=== PATIENT | female | born 1985 | race Caucasian/White ===

== ENCOUNTER 2018-03-07 12:32 | Emergency (ER) | payer MEDICAID, OTHER ==
[~2018-03-07] VITALS: Wt 60.0 kg
[~2018-03-07 12:32] MED LIST: FERR27TA PO; PREN1TAB49 PO; SENN1TAB5 PO
[2018-03-07 12:36] VITALS: BP 145/86; PULSE 84; RESP 18
[2018-03-07] MEDS ORDERED: GABA-526 PO (14:20)
[2018-03-07] MEDS ORDERED: DULO60CA6 PO (14:20)
--- NOTE | 2018-03-07 14:34 | ERD ---
ER Documentation Chief Complaint Chief Complaint medication refill HPI 33-year-old female patient with a past medical history of PTSD presents to the ED for a medication refill, states that she is currently taking Cymbalta and gabapentin for PTSD as she has weaned off of benzos. Reports that her psychiatrist has prescribed this to her however does not remember her psychiatrist name. Denies any fever, chills, nausea, vomiting, diarrhea, neck stiffness. Denies any suicidal or homicidal ideations. Denies any chest pain, shortness of breath. ROS All systems reviewed and are negative except as per history of present illness. Medications Home Meds Active Scripts Duloxetine Hcl* (Cymbalta*) 60 Mg Capsule.dr, 60 MG PO DAILY, #30 CAP Prov:CHIQUITA ESQUIVEL PA-C 03/07/18 Gabapentin* (Gabapentin*) 600 Mg Tablet, 1200 MG PO TID, #120 TAB Prov:CHIQUITA ESQUIVEL PA-C 03/07/18 Reported Medications Sennosides/Docusate Sodium (Stool Softener-Laxative Tab) 1 Tab Tablet, 2 TAB PO DAILY 02/20/11 Ferrous Sulfate (Iron) 1 Tab Tablet, 3 TAB PO DAILY 02/20/11 Vits W-Ca,Fe,Fa(<1MG) () 1 Tab Tablet, 1 TAB PO 02/20/11 Allergies Allergies: Coded Allergies: No Known Drug Allergies (Verified Allergy, 02/20/11) PMhx/Soc Medical and Surgical Hx: pt denies Surgical Hx Hx Neurological Disorder: No Hx Respiratory Disorders: No Hx Cardiac Disorders: No Hx Psychiatric Problems: Yes (anxiety) Hx Miscellaneous Medical Probl: No Hx Alcohol Use: No Hx Substance Use: No FmHx Family History: No diabetes, No coronary disease Physical Exam Vitals Vital Signs Date Temp Pulse Resp B/P (MAP) Pulse Ox O2 O2 Flow FiO2 Time Delivery Rate 03/07/18 98.1 84 18 145/86 99 12:36 (105) Physical Exam Const: [id number], well-nourished. In no acute distress. Head: Atraumatic, normocephalic Eyes: Normal Conjunctiva without injection. No purulent discharge. PERRL. EOMI ENT: Normal external ear. Ear canal without erythema. Tympanic membrane pearly palacios without effusion or bulging. Nasal canal clear with normal turbinates. Mo ist oropharynx without tonsillar exudates. Non-erythematous pharynx. Uvula midline. No drooling. No trismus. Neck: Full range of motion. No meningismus. No cervical lymphadenopathy. Resp: Clear to auscultation bilaterally. No wheezing, rhonchi, rales, or crackles. No accessory muscle use. No retractions. Cardio: Regular rate and rhythm. No murmurs, rubs or gallops. Abd: Soft, non tender, non distended. Normal bowel sounds. No palpable masses. No rebound tenderness. No guarding. Skin: No petechiae or rashes Back: No midline tenderness. No CVA tenderness. Ext: No cyanosis, or edema. Neur: Awake and alert. Psych: Normal Mood and Affect Procedures/MDM This is a 33-year-old female patient with a past medical history of PTSD presen ts to ED of wanting a medication refill for Cymbalta and gabapentin. Patient is afebrile and nontoxic-appearing. This was discussed with my supervising physician, Dr. Abad. Patient has requested for 1600 mg 3 times a day however the maximum dosage noted on epocrates that can be given to the patient is 3600 mg/day therefore a prescription written for patient for 1200 mg 3 times daily is reasonable. Low suspicion for acute myocardial infarction, pneumothorax, pericarditis, myocarditis, endocarditis, pneumonia, cardiac tamponade, pulmonary embolism, pleural effusion, AAA, aortic dissection, Boerhaave's syndrome, cardiac dysrhythmias,meningitis, intracranial bleed, seizure, stroke, TIA or other emergent conditions. Diagnosis: Encounter for medication refill Discharge medications: Cymbalta, gabapentin Follow up with primary care physician in 1-2 days. Instructed patient to return to the ED sooner for any worsening symptoms. Patient's questions were answered. Patient is hemodynamically stable. Patient understood and agreed with discharge plan. Patient discharged stable. Disclaimer: Inadvertent spelling and grammatical errors are likely due to EHR/dictation software use and do not reflect on the overall quality of patient care. Also, please note that the electronic time recorded on this note does not necessarily reflect the actual time of the patient encounter. Departure Diagnosis: Primary Impression: Encounter for medication refill Condition: Stable Patient Instructions: Taking Medicine Safely Referrals: [facility] YOU HAVE RECEIVED A MEDICAL SCREENING EXAM AND THE RESULTS INDICATE THAT YOU DO NOT HAVE A CONDITION THAT REQUIRES URGENT TREATMENT IN THE EMERGENCY DEPARTMENT. FURTHER EVALUATION AND TREATMENT OF YOUR CONDITION CAN WAIT UNTIL YOU ARE SEEN I N YOUR DOCTORS OFFICE WITHIN THE NEXT 1-2 DAYS. IT IS YOUR RESPONSIBILITY TO MAKE AN APPOINTMENT FOR FOLOW-UP CARE. IF YOU HAVE A PRIMARY DOCTOR --you should call your primary doctor and schedule an appointment IF YOU DO NOT HAVE A PRIMARY DOCTOR YOU CAN CALL OUR PHYSICIAN REFERRAL HOTLINE AT IF YOU CAN NOT AFFORD TO SEE A PHYSICIAN YOU CAN CHOSE FROM THE FOLLOWING [facility] [address] [facility]. [facility] [address] [facility]. [facility] [address] [facility] [address] [facility] [address] [facility]. [facility] [address] [facility]. [facility] YOU HAVE RECEIVED A MEDICAL SCREENING EXAM AND THE RESULTS INDICATE THAT YOU DO NOT HAVE A CONDITION THAT REQUIRES URGENT TREATMENT IN THE EMERGENCY DEPARTMENT. FURTHER EVALUATION AND TREATMENT OF YOUR CONDITION CAN WAIT UNTIL YOU ARE SEEN IN YOUR DOCTORS OFFICE WITHIN THE NEXT 1-2 DAYS. IT IS YOUR RESPONSIBILITY TO MAKE AN APPOINTMENT FOR FOLOW-UP CARE. IF YOU HAVE A PRIMARY DOCTOR --you should call your primary doctor and schedule and appointment IF YOU DO NOT HAVE A PRIMARY DOCTOR YOU CAN CALL OUR PHYSICIAN REFERRAL HOTLINE AT . IF YOU CAN NOT AFFORD TO SEE A PHYSICIAN YOU CAN CHOSE FROM THE FOLLOWING [facility] INSTITUTIONS: [facility] [address] [place] [address] [facility] [address] [place] [address] [facility] + [facility], [facility] [address] [place] [address] [facility] URGENT CARE/SPECIALTIES Additional Instructions: Call your primary care doctor TOMORROW for an appointment during the next 2-3 days.See the doctor sooner or return here if your condition worsens before your appointment time. CHIQUITA ESQUIVEL PA-C Mar 07, 2018 14:33
== END 2018-03-07 14:28 | disposition home or self-care (01) ==
LOC: FTE 12:32
DX: Z76.0 Encounter for issue of repeat prescription (principal)
CPT/HCPCS: 99281

== ENCOUNTER 2018-06-13 11:09 | Emergency (ER) | payer MEDICAID, OTHER ==
[~2018-06-13] VITALS: Ht 165.1 cm; Wt 65.0 kg
[~2018-06-13 11:09] MED LIST changes: +DULO60CA6 PO; +GABA-526 PO
[2018-06-13 11:12] VITALS: BP 129/85; PULSE 95; RESP 18; Ht 165.1 cm; Wt 65.0 kg
[2018-06-13] MEDS ORDERED: GABA-526 PO (12:34)
[2018-06-13] MEDS ORDERED: DULO60CA6 PO (12:36)
--- NOTE | 2018-06-13 12:59 | ERD ---
ER Documentation Chief Complaint Chief Complaint RIGHT TOE PAIN HPI Patient is a 33-year-old female with past medical history of PTSD who presents the ER for concerns of refill of her gabapentin and Cymbalta. Patient takes gabapentin 1200 mg 3 times daily. Patient states she does not primary care physician at the time and she is unable to get a refill. Patient also presents with swelling and bruising to her right foot. Patient states she is not sure how she injured it as it was "a hectic scene". Patient states that the pain occurred started approximately 2-3 days ago. Patient denies any previous fractures or dislocations. Patient denies any fevers or chills. Patient denies any suicidal ideations or homicidal ideations. ROS All systems reviewed and are negative except as per history of present illness. Medications Home Meds Active Scripts Duloxetine Hcl* (Cymbalta*) 60 Mg Capsule.dr, 60 MG PO DAILY, #30 CAP Prov:TORSTEN TOTH PA-C 06/13/18 Gabapentin* (Gabapentin*) 600 Mg Tablet, 1200 MG PO TID, #120 TAB Prov:TORSTEN TOTH PA-C 06/13/18 Reported Medications Sennosides/Docusate Sodium (Stool Softener-Laxative Tab) 1 Tab Tablet, 2 TAB PO DAILY 02/20/11 Ferrous Sulfate (Iron) 1 Tab Tablet, 3 TAB PO DAILY 02/20/11 Vits W-Ca,Fe,Fa(<1MG) () 1 Tab Tablet, 1 TAB PO 02/20/11 Allergies Allergies: Coded Allergies: No Known Drug Allergies (Verified Allergy, 02/20/11) PMhx/Soc Hx Neurological Disorder: No Hx Respiratory Disorders: No Hx Cardiac Disorders: No Hx Psychiatric Problems: Yes (anxiety) Hx Miscellaneous Medical Probl: No Hx Alcohol Use: No Hx Substance Use: No Smoking Status: Never smoker FmHx Family History: No diabetes Physical Exam Vitals Vital Signs Date Temp Pulse Resp B/P (MAP) Pulse Ox O2 O2 Flow FiO2 Time Delivery Rate 06/13/18 98.1 95 18 129/85 99 11:12 (100) Physical Exam GENERAL: Well-developed, well-nourished female. Appears in no acute distress. HEAD: Normocephalic, atraumatic. EYES: Pupils are equally reactive bilaterally. EOMs grossly intact. No conjunctival erythema. ENT: Moist mucous membranes. No uvula deviation. No kissing tonsils. NECK: Supple. No meningismus. Normal range of motion of the neck. LUNG: Clear to auscultation bilaterally. No rhonchi, wheezing, rales or coarse breath sounds. HEART: Regular rate and rhythm. No murmurs, rubs or gallops. EXTREMITIES: Equal pulses bilaterally. No peripheral clubbing, cyanosis or edema. No unilateral leg swelling. NEUROLOGIC: Alert and oriented. Moving all four extremities without any difficulty. Normal speech. Steady gait. SKIN: Normal color. Warm and dry. No rashes or lesions. RLE: No deformity. Swelling and ecchymosis noted around the fourth digit. Skin intact. Full ROM. No crepitus. Normal range of motion of the ankle. Nontender palpation of the midfoot, fifth metatarsal, lateral medial ankle. Sensation intact to light touch. Neurovascularly intact. (Able to plantarflex, dorsiflex, mio foot, invert foot, raise big toe.) 2+ DP and DT pulses. Procedures/MDM x ED COURSE: The patient was stable throughout ED course. I kept the patient and/or family informed of laboratory and diagnostic imaging results throughout the ED course. DIAGNOSTIC IMAGING: Read by radiologist. Patient: RUFINA HAIDER : 1985 Age: 33 Sex: F MR #: [id number] DOS: 06/13/18 1145 Ordering MD: TORSTEN TOTH PA-C Location: [facility]TE Room/Bed: PROCEDURE: Right foot x-ray CLINICAL INDICATION: toe pain TECHNIQUE: 3 views of the right foot were obtained. COMPARISON: None FINDINGS: Acute, mildly displaced oblique fracture of the fourth toe proximal phalanx. No evidence of intra-articular extension. No dislocation of the joint spaces. Remainder of the foot is normal. IMPRESSION: Acute, mildly displaced oblique fracture of the fourth toe proximal phalanx. RPTAT:AAJJ Physician Talita Date Time Electronically viewed and signed by Physician Talita on 06/13/2018 12:20 RF/ CC: TORSTEN TOTH PA-C [id number] PROCEDURES: SPLINT APPLICATION: The patient was verbally consented at bedside prior to splint application. Patient was explained the risks, benefits and alternatives to this procedure. The patient was neurovascularly intact prior to and status post application of the splint. The patient tolerated the procedure well with no complications. Splint type: ortho shoe and antonette tape digits 3-4 Extremity: right foot Indication: Acute, mildly displaced oblique fracture of the fourth toe proximal phalanx. MEDICAL DECISION MAKING: This is a 33-year-old female presents to the ER for concerns of medication refill. Patient requesting refill of gabapentin and Cymbalta for her PTSD. Patient also reports right foot pain. Vital signs were reviewed. Patient was afebrile. X-ray imaging did show concerns of Acute, mildly displaced oblique fracture of the fourth toe proximal phalanx. Patient was given or through shoe and digits 3 and 4 were antonette taped. Patient was advised to follow-up with ort hopedic specialist. Low suspicion for toe fracture, compartment syndrome, septic joint. At this time, unable to rule out any tendon and ligament injuries. PRESCRIPTIONS: Cymbalta, gabapentin DISCHARGE: At this time, patient is stable for discharge and outpatient management. I have instructed the patient to follow-up with his/her primary care physician in 1-2 days. I have discussed with the patient the possibility of needing to see an electronic data interchange specialist for further workup and imaging if the pain persists. I have instructed the patient to promptly return to the ER for any new or worsening symptoms including increased pain, swelling, redness, warmth or fever. The patient and/or family expressed understanding of and agreement with this plan. All questions were answered. Home care instructions were provided. Disclaimer: Inadvertent spelling and grammatical errors are likely due to EHR/dictation software use and do not reflect on the overall quality of patient care. Also, please note that the electronic time recorded on this note does not necessarily reflect the actual time of the patient encounter. Departure Diagnosis: Primary Impression: Toe fracture, right Encounter type: initial encounter Toe: unspecified toe Fracture type: closed Fracture alignment: displaced Qualified Codes: S92.911A - Unspecified fracture of right toe(s), initial encounter for closed fracture Additional Impressions: Encounter for medication refill Post traumatic stress disorder (PTSD) Condition: Fair Patient Instructions: Taking Medicine Safely, Finger and Toe Fractures (Broken Finger or Toe) Referrals: [facility] YOU HAVE RECEIVED A MEDICAL SCREENING EXAM AND THE RESULTS INDICATE THAT YOU DO NOT HAVE A CONDITION THAT REQUIRES URGENT TREATMENT IN THE EMERGENCY DEPARTMENT. FURTHER EVALUATION AND TREATMENT OF YOUR CONDITION CAN WAIT UNTIL YOU ARE SEEN IN YOUR DOCTORS OFFICE WITHIN THE NEXT 1-2 DAYS. IT IS YOUR RESPONSIBILITY TO MAKE AN APPOINTMENT FOR FOLOW-UP CARE. IF YOU HAVE A PRIMARY DOCTOR --you should call your primary doctor and schedule an appointment IF YOU DO NOT HAVE A PRIMARY DOCTOR YOU CAN CALL OUR PHYSICIAN REFERRAL HOTLINE AT IF YOU CAN NOT AFFORD TO SEE A PHYSICIAN YOU CAN CHOSE FROM THE FOLLOWING [facility] [address] [facility]. [facility] [address] [facility] [address] [facility] [address] [facility] [address] [facility]. [facility] [address] [facility]. [facility] YOU HAVE RECEIVED A MEDICAL SCREENING EXAM AND THE RESULTS INDICATE THAT YOU DO NOT HAVE A CONDITION THAT REQUIRES URGENT TREATMENT IN THE EMERGENCY DEPARTMENT. FURTHER EVALUATION AND TREATMENT OF YOUR CONDITION CAN WAIT UNTIL YOU ARE SEEN IN YOUR DOCTORS OFFICE WITHIN THE NEXT 1-2 DAYS. IT IS YOUR RESPONSIBILITY TO MAKE AN APPOINTMENT FOR FOLOW-UP CARE. IF YOU HAVE A PRIMARY DOCTOR --you should call your primary doctor and schedule and appointment IF YOU DO NOT HAVE A PRIMARY DOCTOR YOU CAN CALL OUR PHYSICIAN REFERRAL HOTLINE AT . IF YOU CAN NOT AFFORD TO SEE A PHYSICIAN YOU CAN CHOSE FROM THE FOLLOWING [facility] INSTITUTIONS: [facility] [address] [place] [address] [facility] [address] [place] [address] [facility] [address] [place] [address] Additional Instructions: Follow-up with an electronic data interchange specialist on outpatient basis. TORSTEN TOTH PA-C Jun 13, 2018 12:59
== END 2018-06-13 12:55 | disposition home or self-care (01) ==
LOC: FTE 11:09
DX: S92.511A Displaced fracture of proximal phalanx of right lesser toe(s), initial encounter for closed fracture (principal); F43.10 Post-traumatic stress disorder, unspecified; X58.XXXA Exposure to other specified factors, initial encounter; Y92.9 Unspecified place or not applicable; Z76.0 Encounter for issue of repeat prescription
CPT/HCPCS: 73630; 99283; L3260